=== PATIENT | male | born 1935 | race Caucasian/White ===

== ENCOUNTER → 2020-03-07 | Outpatient (CLI) | payer MEDICARE, BC | LOC: RAD 15:31 | DX: M25.511 Pain in right shoulder (principal) ==

== ENCOUNTER 2020-10-07 18:33 | Emergency (ER) | payer MEDICARE, BC ==
[2020-10-07] MEDS ORDERED: CITALOPRAM HBR10 MG PO (19:37)
[2020-10-07] MEDS ORDERED: ACETAMINOPHEN325 M1 PO (19:37)
[2020-10-07] MEDS ORDERED: DESONIDE CREAM TP (19:37)
[2020-10-07] MEDS ORDERED: NEURONTIN300 MG/CAP PO (19:38)
[2020-10-07] MEDS ORDERED: NAMENDA10 MG PO (19:38)
[2020-10-07] MEDS ORDERED: NORCO 325 MG-51 TA1 PO (19:38)
[2020-10-07] MEDS ORDERED: PRAVACHOL 40MG40 MG PO (19:39)
[2020-10-07] MEDS ORDERED: MICARDIS40 M1 PO (19:39)
[2020-10-07] MEDS ORDERED: POTASSIUM CHLO20 ME3 PO (19:39)
[2020-10-07] MEDS ORDERED: VOLTAREN GEL1% TP (19:40)
[2020-10-07 20:34] LABS: ALBUMIN 3.8 g/dL (3.4-4.8)
[2020-10-07 20:35] LABS: POTASSIUM 3.9 mmol/L (3.5-5.1)
[2020-10-07 20:36] LABS: CALCIUM 8.8 mg/dL (8.3-10.5)
[2020-10-07 20:37] LABS: TOTAL PROTEIN 6.4 g/dL (6.2-8.1)
[2020-10-07 20:39] LABS: TOTAL BILIRUBIN 1.1 mg/dL (0.2-1.2)
[2020-10-07 20:46] LABS: TROPONIN-I 0.13 ng/mL (<0.030)
[2020-10-07 21:06] LABS: BASO # 0.03 (0.02-0.10); EOS # 0.24 (0.04-0.40); EOS % 3.4 % (0.0-4.0); HEMATOCRIT 34.2 % (42.0-52.0); HEMOGLOBIN 11.9 g/dL (13.5-18.0); LYMPH# 1.38 (1.50-4.00); MEAN CELL VOLUME 89 fl (78-100); MEAN CORPUSCULAR HEMOGLOBIN 31 pg (27-31); MEAN CORPUSCULAR HGB CONC 35 g/dL (33-37); MEAN PLATELET VOLUME 9.3 fl (7.4-10.4); MONO # 1.02 (0.20-0.80); NEU # 4.34 (1.40-6.50); PLATELET COUNT 179 K/mm3 (130-400); RED BLOOD COUNT 3.83 M/mm3 (4.20-5.60); RED CELL DISTRIBUTION WIDTH 12.3 % (11.5-14.5)
[2020-10-07 21:13] LABS: URINE BILIRUBIN NEGATIVE (NEGATIVE); URINE BLOOD NEGATIVE (NEGATIVE); URINE COLOR YELLOW; URINE GLUCOSE NEGATIVE (NEGATIVE); URINE KETONE NEGATIVE (NEGATIVE); URINE LEUKOCYTE ESTERASE NEGATIVE (NEGATIVE); URINE NITRATE NEGATIVE (NEGATIVE); URINE PROTEIN(semi-quant) NEGATIVE (NEGATIVE); URINE UROBILINOGEN NORMAL (NORMAL)
[2020-10-07 21:16] LABS: URINE WBC 0-1 /hpf (0-3)
[2020-10-07 21:17] LABS: URINE MUCUS PRESENT (NOT PRESENT)
[2020-10-07 21:18] LABS: URINE APPEARANCE CLEAR
[2020-10-08 00:56] VITALS: BP 124/69
== END 2020-10-08 00:56 | disposition short-term general hospital (02) ==
LOC: ED 18:33
PROVIDERS: Nurse Practitioner Family
DX: S72.111A Displaced fracture of greater trochanter of right femur, initial encounter for closed fracture (principal); N17.9 Acute kidney failure, unspecified; R74.8 Abnormal levels of other serum enzymes; F03.90 Unspecified dementia, unspecified severity, without behavioral disturbance, psychotic disturbance, mood disturbance, and anxiety; E86.0 Dehydration; R53.1 Weakness; E78.5 Hyperlipidemia, unspecified; F32.9 Major depressive disorder, single episode, unspecified; Z79.899 Other long term (current) drug therapy; Z20.822 Contact with and (suspected) exposure to COVID-19; W19.XXXA Unspecified fall, initial encounter
CPT/HCPCS: J3010; J7030